=== PATIENT | female | born 1955 | race Caucasian/White ===

== ENCOUNTER → 2019-08-03 15:10 | Outpatient (CLI) | payer MEDICARE, OTHER ==
[2019-08-03 15:35] LABS: BASOPHILS 0.1 % (0-2); EOSINOPHILS 0.5 % (0-7); HEMATOCRIT 40.7 % (36.0-48.0); HEMOGLOBIN 13.7 g/dL (12-16); IMMATURE GRANULOCYTES 0.5 % (0-5); LYMPHOCYTES 19.2 % (15-50); MCH 30.3 pg (26.0-34.0); MCHC 33.7 g/dL (31.0-37.0); MEAN PLATELET VOLUME 10.5 fL (7.4-10.4); MONOCYTES 5.7 % (2-11); PLATELET COUNT 233 10x3/uL (130-400); RBC 4.52 10x6/uL (4.00-5.40); RDW 13.6 % (11.5-14.5); WBC 8.7 10x3/uL (4.8-10.8)
[2019-08-03 16:05] LABS: ALBUMIN 3.1 g/dL (3.4-5.0); ALKALINE PHOSPHATASE 61 U/L (46-116); ALT (SGPT) 23 U/L (10-68); BILIRUBIN - TOTAL 0.25 mg/dL (0.2-1.3); CALC OSMOLALITY 271 mosm/kg (275-300); CALCIUM 8.7 mg/dL (8.5-10.1); CARBON DIOXIDE 23.4 mmol/L (21.0-32.0); CHLORIDE - SERUM 102 mmol/L (98-107); CREATININE - SERUM 0.8 mg/dL (0.6-1.3); GLUCOSE 109 mg/dL (74-106); POTASSIUM - SERUM 4.1 mmol/L (3.5-5.1); PROTEIN - SERUM 7.2 g/dL (6.4-8.2); SODIUM 136 mmol/L (136-145); UREA NITROGEN 9 mg/dL (7-18); eGFR NON AFRICAN AMERICAN 76 mL/min (90-120)
[2019-08-03 16:55] LABS: ERYTHROCYTE SEDIMENTATION RATE 35 mm/hr (0-30)
== END | disposition home or self-care (01) ==
LOC: D.LAB 15:10
PROVIDERS: ATTEND Internal Medicine Gastroenterology
DX: K50.90 Crohn's disease, unspecified, without complications (principal)

== ENCOUNTER 2020-02-20 08:56 | Day surgery (SDC) | payer MEDICARE, OTHER ==
[~2020-02-20] VITALS: Ht 167.6 cm; Wt 105.5 kg
[2020-02-20 09:45] LABS: BASOPHILS 0.2 % (0-2); EOSINOPHILS 1.2 % (0-7); HEMATOCRIT 43.2 % (36.0-48.0); HEMOGLOBIN 14.1 g/dL (12-16); LYMPHOCYTES 26.2 % (15-50); MCH 29.4 pg (26.0-34.0); MCHC 32.6 g/dL (31.0-37.0); MEAN PLATELET VOLUME 10.5 fL (7.4-10.4); MONOCYTES 6.7 % (2-11); NEUTROPHILS 64.7 % (40-80); PLATELET COUNT 251 10x3/uL (130-400); WBC 9.7 10x3/uL (4.8-10.8)
[2020-02-20 09:57] LABS: APTT 27.9 SECONDS (22.8-39.4); INR 1.1 (0.85-1.17); PROTIME 14.2 SECONDS (11.6-15.0)
[2020-02-20 10:00] LABS: ALBUMIN 3.3 g/dL (3.4-5.0); ANION GAP 9.6 mmol/L (8-16); BILIRUBIN - TOTAL 0.41 mg/dL (0.2-1.3); CARBON DIOXIDE 30.4 mmol/L (21.0-32.0); CREATININE - SERUM 0.9 mg/dL (0.6-1.3); PROTEIN - SERUM 7.6 g/dL (6.4-8.2)
[2020-02-20] MEDS ORDERED: HYDROCHLOROTHIA25 MG PO (10:18)
[2020-02-20] MEDS ORDERED: DELZICOL400 M1 PO (10:18)
[2020-02-20] MEDS ORDERED: LOTENSIN20 MG PO (10:19)
[2020-02-20] MEDS ORDERED: ESTRACE2 MG PO (10:19)
[2020-02-20] MEDS ORDERED: NORVASC10 MG PO (10:19)
[2020-02-20] MEDS ORDERED: XALATAN 0.0052.5 ML EACH EYE (10:20)
[2020-02-20 10:21] VITALS: BP 183/97; Ht 167.6 cm; Wt 105.5 kg
[2020-02-20] MEDS ORDERED: GABAPENTIN300 MG PO (10:21)
--- NOTE | 2020-02-20 12:07 | NUR ---
1202 VSS. IV DC'D. CATHETER TIP INTACT. NO BLEEDING AT SITE. BANDAID APPLIED. 1207 REVIEWED DISCHARGE INSTRUCTIONS WITH PT WHO VOICES UNDERSTANDING OF INSTRUCTIONS.
--- NOTE | 2020-02-20 12:34 | NUR ---
1215 PT HAS BEEN MOVING AROUND IN ROOM. BP IS HIGHER THIS CHECK. PT DID NOT TAKE HER BP MEDS THIS AM PRIOR TO ARRIVAL. INSTRUCTED PT TO TAKE HER BP MEDICATION SOON SHE GOT HOME. PT STATED THAT SHE WOULD.
--- NOTE | 2020-02-21 06:47 | OP ---
PATIENT NAME: JADIEL BHATTI MEDICAL RECORD: [id number] :51 LOCATION:[facility] ADMISSION DATE: SURGEON: MARCO HAQUE DO DATE OF OPERATION: 02/20/2020 PROCEDURE: Colonoscopy with polypectomy and biopsies. INDICATIONS FOR PROCEDURE: History of Crohn disease as well as generalized abdominal pain and hematochezia. SCOPE: Olympus video pediatric colonoscope. MEDICATIONS: Propofol 600 mg IV per anesthesia. WITHDRAWAL TIME: 22 minutes. ESTIMATED BLOOD LOSS: Minimal. COMPLICATIONS: None immediate. FINDINGS: Informed consent was given. The patient was made comfortable with the above medication. After reaching an adequate level of sedation by slow IV push, the patient was placed on her left side. A digital rectal examination was performed and revealed some hemorrhoids. The endoscope was then advanced under direct visualization through the rectum to the cecum and terminal ileum. The endoscope was slowly withdrawn and mucosa was carefully examined. The prep quality was poor, but was able to be cleaned adequately for evaluation for polyps and colitis. There were 2 polyps visualized on today's examination. The first was a benign appearing sessile polyp located in the transverse colon. It was removed using hot snare. It measured approximately 5 mm in diameter. A second polyp was a benign appearing sessile polyp located in the descending colon. It measured approximately 6 mm in diameter. It was also removed using hot snare. There were colitis changes consisting of granularity, erythema, and vascular changes located in a scattered distribution throughout the entire colon. Cold forceps biopsies were specifically taken from the terminal ileum, the cecum, ascending colon, and descending colon. Retroflexion was performed in the rectum with visualization of internal hemorrhoids. There was also evidence of diverticulosis involving the descending and sigmoid colon. The endoscope was withdrawn from the patient. The patient tolerated the procedure well and there were no immediate complications. IMPRESSION: 1. Two polyps as described above, removed using a hot snare. 2. Colitis changes involving scattered areas of the entire colon as described above. Biopsies were taken. 3. Moderate diverticulosis of the descending and sigmoid colon. 4. Internal and external hemorrhoids without active bleeding. PLAN AND RECOMMENDATIONS: 1. Discharge home when recovery parameters are met. 2. Follow up biopsy specimen results. 3. High fiber diet. 4. Continue current medications. 5. I will discuss changing the patient's medication with her. I believe that her colitis is not completely controlled and would recommend an increase in OPERATIVE REPORT [id number] JADIEL BHATTI Y medicine to Imuran or a biologic therapy such as Humira or Remicade if the patient prefers infusions. 6. Follow up in GI clinic in approximately 2 weeks to discuss medication changes. TRANSINT:[id number] Voice Confirmation ID: [id number] DOCUMENT ID: [id number] MARCO HAQUE DO at 0647 CC: [id number] DICTATION DATE: 02/20/20 1140 [employer]ANCE SENIOR MANAGER INSURANCE: 02/20/20 [address] [facility] 02/20/20 [place] [id number] [place] [id number]
== END 2020-02-20 12:21 | disposition home or self-care (01) ==
LOC: D.OPS 08:56
PROVIDERS: Anesthesiology; ATTEND Internal Medicine Gastroenterology
DX: R10.84 Generalized abdominal pain (principal); K92.1 Melena; K50.90 Crohn's disease, unspecified, without complications; K63.5 Polyp of colon; R11.0 Nausea; R13.10 Dysphagia, unspecified; R12 Heartburn

== ENCOUNTER 2020-02-27 09:57 | Day surgery (SDC) | payer MEDICARE, OTHER ==
[~2020-02-27] VITALS: Ht 167.6 cm; Wt 105.5 kg
[~2020-02-27 09:57] MED LIST: DELZICOL400 M1 PO; ESTRACE2 MG PO; GABAPENTIN300 MG PO; HYDROCHLOROTHIA25 MG PO; LOTENSIN20 MG PO; NORVASC10 MG PO; XALATAN 0.0052.5 ML EACH EYE
[2020-02-27 10:32] LABS: APTT 27.3 SECONDS (22.8-39.4); INR 1.08 (0.85-1.17)
[2020-02-27 10:40] LABS: ALBUMIN 3.2 g/dL (3.4-5.0); ANION GAP 10.3 mmol/L (8-16); BILIRUBIN - TOTAL 0.67 mg/dL (0.2-1.3); CARBON DIOXIDE 30.7 mmol/L (21.0-32.0); CREATININE - SERUM 0.9 mg/dL (0.6-1.3); PROTEIN - SERUM 7.5 g/dL (6.4-8.2)
[2020-02-27 11:11] VITALS: Ht 167.6 cm; Wt 105.5 kg
[2020-02-27 11:11] LABS: HEMATOCRIT 56.1 % (36.0-48.0); HEMOGLOBIN 18.6 g/dL (12-16); MCH 29.5 pg (26.0-34.0); MCHC 33.2 g/dL (31.0-37.0); MCV 88.9 fL (80.0-100.0); MEAN PLATELET VOLUME 11.1 fL (7.4-10.4); NEUTROPHILS 60.4 % (40-80); RBC 6.31 10x6/uL (4.00-5.40); RDW 13.2 % (11.5-14.5); WBC 6.3 10x3/uL (4.8-10.8)
[2020-02-27 11:14] LABS: PLATELET COUNT 140 10x3/uL (130-400)
--- NOTE | 2020-02-27 15:04 | NUR ---
1430 IV DC'ED WITH CATH INTACT. DRESSING. Sharad MEDINA R.N. 1442 DISCHARGE INFORMATION REVIEWED WITH PATIENT INCLUDING MED REC, GERD DIET, SHEET LISTING NSAIDS, RTC APPT., [facility] POST ENDOSCOPIC D/C INSTRUCTIONS, & SCHEDULED APPT FOR ECHOCARDIOGRAM. PT & SON VOICED UNDERSTANDING. TO PRIVATE CAR PER STAFF. HOME WITH SON. Sharad MEDINA R.N.
--- NOTE | 2020-02-29 16:26 | OP ---
PATIENT NAME: JADIEL BHATTI MEDICAL RECORD: [id number] :51 LOCATION:[facility] ADMISSION DATE: SURGEON: MARCO HAQUE DO DATE OF OPERATION: 02/27/2020 PROCEDURE: EGD with biopsies and balloon dilation. INDICATIONS FOR PROCEDURE: Dysphagia, heartburn, generalized abdominal pain, and nausea. SCOPE: Olympus video gastroscope. MEDICATIONS: Propofol 250 mg IV per anesthesia. ESTIMATED BLOOD LOSS: Minimal. COMPLICATIONS: None. FINDINGS: Informed consent was given. The patient was made comfortable with the above medication. After reaching an adequate level of sedation by slow IV push, the patient was placed on her left side. The endoscope was advanced under direct visualization through the mouth to the second portion of the duodenum with ease. The esophagus appeared normal down to the GE junction. At the GE junction, there was some stenosis and evidence of LA class A reflux-induced esophagitis. A 16-18 mm CRE dilating balloon was placed through the working channel of the endoscope and the stenosis was dilated to 18 mm maximum diameter successfully. The endoscope was advanced beyond the GE junction into the stomach and retroflexed to view the cardia, where a small sliding hiatal hernia was present. The entire stomach appeared normal. Cold forceps, biopsies were taken in the antrum to submit for histopathology and to rule out the presence of H. pylori. The endoscope was advanced into the duodenum which appeared normal to the second portion. The endoscope was withdrawn from the patient. The patient tolerated the procedure well and there were no complications. IMPRESSION: 1. LA class A reflux-induced esophagitis. 2. 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 3. Small sliding hiatal hernia. PLAN AND RECOMMENDATIONS: 1. Discharge home when recovery parameters are met. 2. Follow up biopsy specimen results. 3. GERD diet and reflux precautions. 4. Continue current medications. 5. Follow up in GI clinic as needed. TRANSINT:[id number] Voice Confirmation ID: [id number] DOCUMENT ID: [id number] OPERATIVE REPORT [id number] JADIEL BHATTI MARCO HAQUE DO at 1626 CC: [id number] DICTATION DATE: 02/27/20 1324 PSYCHIATRIC RN: 02/27/20 [id number] [facility] 02/27/20 [facility] [address] [place] [id number]
== END 2020-02-27 14:42 | disposition home or self-care (01) ==
LOC: D.OPS 09:57
PROVIDERS: Anesthesiology; ATTEND Internal Medicine Gastroenterology
DX: R13.10 Dysphagia, unspecified (principal); R12 Heartburn; R10.84 Generalized abdominal pain; R11.0 Nausea; K22.2 Esophageal obstruction

== ENCOUNTER → 2020-03-01 09:49 | Outpatient (CLI) | payer MEDICARE, OTHER ==
[2020-02-27 11:11] VITALS: BMI 37.5
--- NOTE | 2020-03-01 16:09 | EC ---
PATIENT:JADIEL BHATTI DATE OF SERVICE: 03/01/20 SEX: F MEDICAL RECORD: [id number] DATE OF : 51 [facility] AGE OF PATIENT: 64 ADMISSION DATE: 03/01/20 REFERRING PHYSICIAN: INTERPRETING PHYSICIAN: SHANNAN DUBOIS MD ECHOCARDIOGRAM REPORT ECHO CHARGES 4 ECHO COMPLETE Date: 03/01/20 CLINICAL DIAGNOSIS: DYSPNEA ECHOCARDIOGRAPHIC MEASUREMENTS (adult normal given) AC root (d.<3.7cm) 3.1 cm LV Septum d (<1.2 cm> 1.2 cm Valve Excursion 2.1 cm LV Septum (systole) 1.3 cm Left Atria (s.<4.0cm> 3.2 cm LVPW d(<1.2cm) 0.8 cm RV (d.<2.3cm) 2.6 cm LVPW (sytole) 1.2 cm LV diastole(<5.6CM) 5.9 cm MV E-F(>70mm/sec) cm LV systole 4.6 cm LVOT Diameter 1.9 cm MV exc.(>10mm) cm Est.ejection fraction (50-75%) % DOPPLER: LVIT cm/sec A 83 cm/sec E 65 cm/sec LA cm/sec RVSP 17.6 mmHg LVOT 122 cm/sec AOP1/2T m/s Asc. Ao 178 cm/sec RVOT 69 cm/sec RA cm/sec PA 79 cm/sec AV Gradient Peak 12.7 mmHg AV Mean 7.0 mmHg AV Area 2.2 cm MV Gradient Peak 4.1 mmHg MV Mean 2.1 mmHg MV Area cm COMMENTS: Sql Server Architect: Rita [facility] Core Checker: 3 Dr. Garcia TAPE# PACS Pericardial Effusion N DATE OF SERVICE: Adequate 2D, color-flow imaging, spectral Doppler, and M-Mode Borderline LVH. LV internal dimension is normal. Wall motion is normal. EF is greater than or equal to 55%. Aortic valve is tricuspid. No evidence of stenosis by Doppler interrogation. Left atrium is normal at 3.2 cm. Mitral valve shows no prolapse. Trace MR. Right-sided chambers are grossly normal. Trace TR. ECHOCARDIOGRAM REPORT [id number] JADIEL BHATTI TRANSINT:[id number] Voice Confirmation ID: [id number] DOCUMENT ID: [id number] SHANNAN DUBOIS MD at 1609 CC: [id number] DICTATION DATE: 03/01/20 1254 ELECTRIC FORK OPERATOR: 03/01/20 1316 [facility] [address] [place] [address]
== END | disposition home or self-care (01) ==
LOC: D.ECHO 09:49
PROVIDERS: ATTEND Internal Medicine Gastroenterology
DX: R06.09 Other forms of dyspnea (principal)

== ENCOUNTER → 2020-03-29 12:10 | Outpatient (CLI) | payer MEDICARE, OTHER ==
[2020-02-27 11:11] VITALS: BMI 37.5
[2020-03-29 13:11] LABS: BASOPHILS 0.3 % (0-2); EOSINOPHILS 1.3 % (0-7); HEMATOCRIT 43.6 % (36.0-48.0); HEMOGLOBIN 14.2 g/dL (12-16); IMMATURE GRANULOCYTES 0.6 % (0-5); LYMPHOCYTES 39.5 % (15-50); MCH 29.1 pg (26.0-34.0); MCHC 32.6 g/dL (31.0-37.0); MCV 89.3 fL (80.0-100.0); MEAN PLATELET VOLUME 10.9 fL (7.4-10.4); MONOCYTES 7.1 % (2-11); NEUTROPHILS 51.2 % (40-80); PLATELET COUNT 223 10x3/uL (130-400); RBC 4.88 10x6/uL (4.00-5.40); RDW 13.1 % (11.5-14.5); WBC 6.8 10x3/uL (4.8-10.8)
[2020-03-29 13:22] LABS: ALBUMIN 3.5 g/dL (3.4-5.0); ANION GAP 9.1 mmol/L (8-16); BILIRUBIN - TOTAL 0.17 mg/dL (0.2-1.3); CALCIUM 9.1 mg/dL (8.5-10.1); CARBON DIOXIDE 32.5 mmol/L (21.0-32.0); POTASSIUM - SERUM 3.6 mmol/L (3.5-5.1); PROTEIN - SERUM 7.7 g/dL (6.4-8.2)
[2020-03-29 14:06] LABS: ERYTHROCYTE SEDIMENTATION RATE 11 mm/hr (0-30)
== END | disposition home or self-care (01) ==
LOC: D.LAB 12:10
PROVIDERS: ATTEND Internal Medicine Gastroenterology
DX: K50.10 Crohn's disease of large intestine without complications (principal); K21.9 Gastro-esophageal reflux disease without esophagitis